=== PATIENT | female | born 1995 | race Caucasian/White ===

== ENCOUNTER 2016-09-15 00:06 | Inpatient (IN) | payer OTHER ==
[~2016-09-15] VITALS: Ht 170.2 cm; Wt 77.2 kg
[~2016-09-15 00:06] MED LIST: ACET-141 PO; ALBU8.5H3 INH; AZIT250T94 PO; PRED20TA PO; RANI15SY PO
[2016-09-15 00:40] VITALS: BP 112/63; PULSE 82; RESP 18; Ht 170.2 cm; Wt 77.2 kg
[2016-09-15] MEDS: LACTATED RINGER'S 1,000 ML IV SCH ×5 (01:11→22:34)
[2016-09-15] MEDS ORDERED: LACTATED RINGER'S 1,000 ML IV PRN (01:50)
[2016-09-15] MEDS ORDERED: LIDOCAINE 1% (MPF) 30 ML INJ INJ PRN (02:00)
[2016-09-15] MEDS ORDERED: METHYLERGONOVINE 0.2 MG INJ IM PRN (02:00)
[2016-09-15] MEDS ORDERED: IBUPROFEN 600 MG TAB PO PRN (02:00)
[2016-09-15] MEDS ORDERED: ACETAMINOPHEN/CODEINE #3 TAB PO PRN (02:00)
[2016-09-15] MEDS ORDERED: OXYTOCIN 30 UNITS/LR 500 ML IV SCH ×3 (02:00→16:00)
[2016-09-15] MEDS ORDERED: MISOPROSTOL 200 MCG TAB PR PRN (02:00)
[2016-09-15] MEDS ORDERED: BUTORPHANOL 2 MG INJ IV PRN ×2 (02:00)
[2016-09-15] MEDS ORDERED: CARBOPROST 250 MCG INJ IM PRN (02:00)
[2016-09-15] MEDS ORDERED: OXYTOCIN 30 UNITS/LR 500 ML IV PRN (02:00)
[2016-09-15 02:22] LABS: BASOPHILS % 0.2 % (0.0-2.0); EOSINOPHILS % 0.3 % (0.0-7.0); HEMATOCRIT 30.5 % (37.0-47.0); HEMOGLOBIN 10.1 g/dl (12.0-16.0); LYMPHOCYTES # 1.6 10^3/ul (0.8-2.9); LYMPHOCYTES % 14.8 % (15.0-51.0); MEAN CORPUSCULAR HEMOGLOBIN 28.5 pg (29.0-33.0); MEAN CORPUSCULAR HGB CONC 33.1 g/dl (32.0-37.0); MEAN CORPUSCULAR VOLUME 86.2 fl (82.0-101.0); MEAN PLATELET VOLUME 11.4 fl (7.4-10.4); NEUTROPHIL # 8.2 10^3/ul (1.6-7.5); NEUTROPHILS % 74.8 % (39.0-77.0); PLATELET COUNT 243 10^3/UL (140-415); RED BLOOD COUNT 3.54 10^6/ul (4.20-5.40); RED CELL DISTRIBUTION WIDTH 13.9 % (11.5-14.5)
[2016-09-15 02:27] LABS: INR 0.97; PARTIAL THROMBOPLASTIN TIME 26.8 Sec (25.0-35.0); PROTIME 12.9 Sec (12.2-14.2)
[2016-09-15] MEDS ORDERED: MINERAL OIL LIGHT 10 ML VIAL TOP PRN (03:30)
[2016-09-15] MEDS ORDERED: AMPICILLIN 2 GM/NS (PMX) 100 ML IV ONE (04:00)
--- NOTE | 2016-09-15 04:42 | TRIAGE ---
OB Triage Datetime Report Generated by CPN: 09/15/2016 04:42 Datetime: 09/15/2016 04:00 Labor Evaluation Frequency: 2-5 Monitor Mode: External Duration (sec)2399: 60-90 Pattern: Normal: <= 5 Contractions in 10 Minutes Heart Rate FHR Baseline Rate: 135 Monitor Mode: External US FHR Baseline Changes: No Baseline Change Variability: Moderate 6-25 bpm Accelerations: 15X15 Datetime: 09/15/2016 03:24 Assessment Type: Admission Assessment Vaginal Bleeding: None Maternal Assessment Level of Consciousness: Fully Conscious Headache: Denies Blurred Vision: No Respiratory Effort: Unlabored; Regular Rhythm; Equal Expansion Nausea/Vomiting: Denies RUQ Epigastric Pain: Denies Lower Extremities Edema: None Upper Extremities Edema: None Facial Edema: None Fall Risk Assessment History of Falling: (0) No Secondary Diagnosis: (0) No Ambulatory Aid: (0) Bedrest/Nurse Assist IV Therapy: (20) Yes Gait: (0) Normal/Bedrest/Immobile Mental Status: (0) Oriented to Own Ability Fall Score: 20 Fall Risk Score Definition: No Risk: No action required Pain Assessment Pain Scale: 6 Pain Presence: Intermittent Pain Type: Contraction Pain Location: Back Membrane Status: Intact Datetime: 09/15/2016 03:00 Labor Evaluation Frequency: 4-6 Monitor Mode: External Duration (sec)2399: 50-80 Pattern: Normal: <= 5 Contractions in 10 Minutes Heart Rate FHR Baseline Rate: 130 Monitor Mode: External US FHR Baseline Changes: No Baseline Change Variability: Moderate 6-25 bpm Accelerations: 15X15 Datetime: 09/15/2016 02:48 Time of Arrival: 09/15/2016 02:48 EGA: 40.0 Arrived By: Ambulatory Arrived From: OB TRIAGE Datetime: 09/15/2016 02:28 Labor Evaluation Frequency: 1-5 Monitor Mode: External Duration (sec)2399: 60-100 Quality: Mild Pattern: Normal: <= 5 Contractions in 10 Minutes Resting Tone [place]: Relaxed Heart Rate FHR Baseline Rate: 135 Monitor Mode: External US FHR Baseline Changes: No Baseline Change Variability: Moderate 6-25 bpm Accelerations: 15X15 Decelerations: None Category: Category I Datetime: 09/15/2016 01:30 Labor Evaluation Frequency: 3 Monitor Mode: External Duration (sec)2399: 120 Quality: Mild Pattern: Normal: <= 5 Contractions in 10 Minutes Resting Tone [place]: Relaxed Datetime: 09/15/2016 01:25 EGA: 40.0 Datetime: 09/15/2016 01:20 Vaginal Exam Dilatation (cms): 2.0 Effacement (%): 70 Station: -3 Exam By: Funmilayo ROCKWELL RN Vaginal Bleeding: None Cervix, Consistency: Firm Cervix, Position: Posterior Presentation 'A': Cephalic Datetime: 09/15/2016 01:16 Membrane Status: Intact Datetime: 09/15/2016 00:32 Stage of : OB Triage Time of Arrival: 09/15/2016 00:00 Arrived By: Wheelchair Arrived From: Home Chief Complaint: CONTRACTIONS/ ROM Movement: Present Rupture of Membranes: Unsure Vaginal Bleeding: None Vaginal Discharge: Present Recent Sexual Intercouse: Denies Abdominal Trauma: Not Applicable Patient Complaints: None (Annotations: Data stored by CPN on behalf of user) Time Provider Notified: 09/15/2016 01:22 Provider Notified: DILEEP Initial Plan: CALL JIAN SHARP Maternal Assessment Level of Consciousness: Fully Conscious DTR's/Clonus: DTRs 2+; No Clonus Headache: Denies Blurred Vision: No Respiratory Effort: Unlabored; Regular Rhythm; Equal Expansion Breath Sounds, Left: Clear and Equal Breath Sounds, Right: Clear and Equal Nausea/Vomiting: Denies RUQ Epigastric Pain: Denies Lower Extremities Edema: None Degree: None Upper Extremities Edema: None Degree: None Facial Edema: None Temperature Route: Oral Fall Risk Assessment History of Falling: (0) No Secondary Diagnosis: (0) No Ambulatory Aid: (0) Bedrest/Nurse Assist IV Therapy: (0) No Gait: (0) Normal/Bedrest/Immobile Mental Status: (0) Oriented to Own Ability Fall Score: 0 Fall Risk Score Definition: No Risk: No action required Monitor Mode: External Monitor Mode: External US Pain Assessment Pain Scale: 6 Pain Presence: Intermittent Pain Type: Contraction Pain Location: Abdomen; Back
[2016-09-15] MEDS ORDERED: DIPHENHYDRAMINE 50 MG INJ IV PRN (08:00)
[2016-09-15] MEDS ORDERED: ONDANSETRON 4 MG INJ IV PRN (08:00)
[2016-09-15] MEDS ORDERED: NALOXONE (0.4 MG/ML) INJ IV PRN (08:00)
[2016-09-15] MEDS: AMPICILLIN 1 GM/NS (PMX) 50 ML IV SCH ×4 (08:53→20:00)
[2016-09-15] MEDS: FENTAnyl 2MCG/ML-ROPIV 0.2% 100 ML BAG EPI SCH ×2 (10:16→15:59)
[2016-09-15] MEDS ORDERED: ACETAMINOPHEN 325 MG TAB PO ONE (22:26)
[2016-09-16] MEDS: LACTATED RINGER'S 1,000 ML IV SCH ×2 (00:25→02:22)
[2016-09-16] MEDS: FENTAnyl 2MCG/ML-ROPIV 0.2% 100 ML BAG EPI SCH (00:56)
--- NOTE | 2016-09-16 04:20 | HP ---
Date/Time of Note Date/Time of Note DATE: 09/16/16 TIME: 04:13 OB - History Hx of Present Free Text/Dictation 20 y.o at 40w in labor with intact membrane. VE 2/80%/-2 unevenful course admitted for expectant management. Chief Complaint: labor Estimated Due Date: Sep 15, 2016 : 1 Para: 0 Spontaneous : 0 Therapeutic : 0 Care: Good Care Ultrasounds: Normal mid trimester US Medical Complications: None, Other (hx of heart surgery) Past Family/Social History * Past Medical, Surgical, Family and Obstetric Histories reviewed from chart. Blood Type: A+ Rubella: immune RPR/VDRL: Negative GBS Status: Negative HBsAG: Negative OB Admission Exam Vital Signs Vital Signs Vital Signs Date Time Temp Pulse Resp B/P Pulse Ox O2 Delivery O2 Flow Rate FiO2 09/15/16 00:40 98.4 82 18 112/63 Room Air Physical Exam HEENT: WNL Heart: Rhythm Normal Lungs: Clear, Equal Abdomen: WNL Extremities: Normal Reflexes: Normal Cervical Dilatation: 2cm Effacement: 75% Station: -2 Membranes: Intact Amniotic Fluid: Unevaluable Heart Rate: 130's Accelerations: Accelerations Present Decelerations: No Decelerations Varibility: Moderate Contractions on Admission: < 5 Minutes Apart Intensity: Mild Last 72 hours Lab Results CBC & BMP 09/15/16 01:03 OB Assessment/Plan Other Assessment: [id number] in labor Plan: Expectant Management CRYS FALK MD Sep 16, 2016 04:20
--- NOTE | 2016-09-16 04:24 | LDN ---
Date/Time of Note Date/Time of Note DATE: 09/16/16 TIME: 04:21 Delivery Summary Weeks of Gestation 40w1d Placenta Delivered: Spontaneously Meconium: none Episiotomy: No Perineal laceration: 2 Laceration repair: 00ch gut Anesthesia type: Epidural Sponge & Needle done & correct: Yes All needle counts correct: Yes Any foreign bodies felt in the: No Problems: Delivery Information Sex Infant Sex: female Apgars 1 Minute: 8 5 Minute: 8 10 Minute: 9 Suctioning Nose & mouth suctioned at monty: Yes Delee suction performed: No Umbilical Cord Umbilical cord with: 3 Vessels Cord presentations: nuchal cord Nuchal cord present X: 1 Cord Blood was obtained: Yes Mother & Baby Disposition Disposition Mom & Baby to Maternity; Good: Yes Mom transferred to: Other () Baby to NICU: No CRYS FALK MD Sep 16, 2016 04:24
[2016-09-16] MEDS: IBUPROFEN 600 MG TAB PO SCH ×3 (06:43→18:02)
[2016-09-16 06:45] VITALS: BP 113/59; PULSE 83; RESP 18
[2016-09-16] MEDS ORDERED: OXYCODONE/ASPIRIN (4.88/325) TAB PO PRN ×2 (07:00)
[2016-09-16] MEDS ORDERED: ZOLPIDEM 5 MG TAB PO PRN (07:00)
[2016-09-16] MEDS ORDERED: OXYTOCIN 30 UNITS/LR 500 ML IV PRN (07:00)
[2016-09-16] MEDS ORDERED: CARBOPROST 250 MCG INJ IM PRN (07:00)
[2016-09-16] MEDS ORDERED: BENZOCAINE 20% 56 ML SPRAY TOP PRN (07:00)
[2016-09-16] MEDS ORDERED: LANOLIN 7 GM TUBE TOP PRN (07:00)
[2016-09-16] MEDS ORDERED: MISOPROSTOL 200 MCG TAB PR PRN (07:00)
[2016-09-16] MEDS ORDERED: WITCH HAZEL/GLYCERIN PAD PR PRN (07:00)
[2016-09-16] MEDS ORDERED: METHYLERGONOVINE 0.2 MG INJ IM PRN (07:00)
[2016-09-16 08:00] VITALS: BP 106/55; PULSE 78; RESP 16
[2016-09-16] MEDS: SENNA/DOCUSATE NA (8.6MG/50MG) TAB PO SCH ×2 (11:40→21:29)
[2016-09-16 12:30] VITALS: BP 100/55; PULSE 76; RESP 16
[2016-09-16 16:15] VITALS: BP 106/54; PULSE 83; RESP 17
[2016-09-16 20:15] VITALS: BP 110/59; PULSE 80; RESP 18
[2016-09-17] MEDS: IBUPROFEN 600 MG TAB PO SCH ×5 (00:08→23:24)
[2016-09-17 00:15] VITALS: BP 102/53; PULSE 65; RESP 18
[2016-09-17 04:00] VITALS: BP_SYST 100; BP_SYST 120; BP_DIAS 54; BP_DIAS 69; PULSE 69; PULSE 70; RESP 18
[2016-09-17 07:30] VITALS: BP 103/54; PULSE 74; RESP 18
--- NOTE | 2016-09-17 09:42 | PN ---
Date/Time of Note Date/Time of Note DATE: 09/17/16 TIME: 09:36 OB Subjective Subjective Subjective c/o after pain OB Objective Objective Objective vss afebrile fundus firm lochia min calf neg OB Assessment/Plan Other Assessment: s/p normal vaginal delivery Other plan: d/s home in am CRYS FALK MD Sep 17, 2016 09:42
[2016-09-17 09:49] LABS: BASOPHILS % 0.3 % (0.0-2.0); EOSINOPHILS # 0.2 10^3/ul (0.0-0.5); EOSINOPHILS % 1.3 % (0.0-7.0); HEMATOCRIT 26.2 % (37.0-47.0); HEMOGLOBIN 8.2 g/dl (12.0-16.0); LYMPHOCYTES # 2.2 10^3/ul (0.8-2.9); LYMPHOCYTES % 17.8 % (15.0-51.0); MEAN CORPUSCULAR HEMOGLOBIN 27.2 pg (29.0-33.0); MEAN CORPUSCULAR HGB CONC 31.3 g/dl (32.0-37.0); MEAN PLATELET VOLUME 11.3 fl (7.4-10.4); MONOCYTES % 7.9 % (0.0-11.0); NEUTROPHIL # 8.8 10^3/ul (1.6-7.5); NEUTROPHILS % 71.7 % (39.0-77.0); PLATELET COUNT 228 10^3/UL (140-415); RED BLOOD COUNT 3.01 10^6/ul (4.20-5.40); RED CELL DISTRIBUTION WIDTH 14.6 % (11.5-14.5); WHITE BLOOD COUNT 12.3 10^3/ul (4.8-10.8)
[2016-09-17] MEDS: SENNA/DOCUSATE NA (8.6MG/50MG) TAB PO SCH ×2 (10:07→21:26)
[2016-09-17 16:00] VITALS: BP 112/57; PULSE 68; RESP 18
[2016-09-17 20:00] VITALS: BP 107/56; PULSE 70; RESP 18
[2016-09-18 04:00] VITALS: BP 114/60; PULSE 65; RESP 18
[2016-09-18] MEDS: IBUPROFEN 600 MG TAB PO SCH ×2 (05:55→12:42)
--- NOTE | 2016-09-18 06:21 | DS ---
Date/Time of Note Date/Time of Note DATE: 09/18/16 TIME: 06:20 Obstetrical Discharge Record Final Diagnosis Final Diagnosis: Term delivered Vaginal Delivery Obstetrical Delivery: Spontaneous, Laceration, Repaired Complications Augmentation: Yes Condition on Discharge Physical Assessment Last Vitals: vss afebrile Voiding: Yes Bowel Movement: Yes Breast: Soft, non-tender Fundus: Firm Calf Tenderness: No Patient Condition: Stable CRYS FALK MD Sep 18, 2016 06:21
--- NOTE | 2016-09-18 06:23 | DS ---
Date/Time of Note Date/Time of Note DATE: 09/18/16 TIME: 06:22 Obstetrical Discharge Record Final Diagnosis Final Diagnosis: Term delivered Vaginal Delivery Obstetrical Delivery: Spontaneous, Laceration, Repaired Complications Augmentation: Yes Condition on Discharge Physical Assessment Last Vitals: vss afebrile Voiding: Yes Bowel Movement: Yes Breast: Soft, non-tender Fundus: Firm Calf Tenderness: No Patient Condition: Stable CRYS FALK MD Sep 18, 2016 06:23
--- NOTE | 2016-09-18 06:25 | PD.PPDC ---
SCIENTIFIC RESEARCH MANAGER Discharge Instruction Diagnosis Final Diagnosis: s/p normal vaginal delivery Condition Patient Condition: Stable Diet Diet: Resume Regular Diet Activity/Restrictions Activity: May Shower Restrictions: No Lifting No Sexual Activity Nothing in the Vagina No [place] No Tampons, douche Follow-up Follow-up with Physician: 6, Week/Weeks Return to clinic for [employer] DBA Instructions: Fever greater than 101 Chills Worsening abdominal pain Excessive Vaginal Bleeding More than 2 pads per hour Unable to tolerate diet OB Instructions: Breast Tenderness Depression Blurried Vision Headache CRYS FALK MD Sep 18, 2016 06:25
[2016-09-18 08:55] VITALS: BP 101/55; PULSE 62; RESP 16
[2016-09-18] MEDS: SENNA/DOCUSATE NA (8.6MG/50MG) TAB PO SCH (09:00)
[2016-09-18] MEDS ORDERED: DIPHTH/TET/ACEL PERTUSS (ADULT) 0.5 ML VIAL IM* ONE (09:00)
== END 2016-09-18 15:45 | disposition home or self-care (01) | DRG 775 ==
LOC: OBT 00:06 → L-D 00:07 → OBT 00:41 → L-D 00:41 → PP1 09-16 06:27
PROVIDERS: ADMIT Obstetrics & Gynecology; ATTEND Obstetrics & Gynecology
PROC: 10E0XZZ Delivery of Products of Conception, External Approach (ICD-10-PCS; principal; 2016-09-16)
PROC: 0KQM0ZZ Repair Perineum Muscle, Open Approach (ICD-10-PCS; 2016-09-16)
PROC: 3E033VJ Introduction of Other Hormone into Peripheral Vein, Percutaneous Approach (ICD-10-PCS; 2016-09-16)
DX: O48.0 Post-term pregnancy (principal); O69.81X0 Labor and delivery complicated by cord around neck, without compression, not applicable or unspecified; Z3A.40 40 weeks gestation of pregnancy; O70.1 Second degree perineal laceration during delivery; Z37.0 Single live birth
CPT/HCPCS: 36415; 62319; 85025; 85610; 85730; 86592; 86900; 86901; 87340; 90715; 99464; G0463; J0290; J2590; J3010; J7120